=== PATIENT | male | born 1965 | race American Indian/Alaskan Native ===

== ENCOUNTER 2017-10-27 22:05 | Emergency (ER) | payer OTHER ==
[2017-10-27] MEDS ORDERED: Ketorolac 60 MG/2 ML SDV IM ONE (22:28)
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
== END 2017-10-28 01:10 | disposition home or self-care (01) ==
LOC: FB.ED 22:05
DX: M54.9 Dorsalgia, unspecified (principal); G89.29 Other chronic pain
CPT/HCPCS: 72128; 96372; 99284; J1885